=== PATIENT | female | born 1980 | race Caucasian/White ===

== ENCOUNTER 2016-11-07 17:07 | Emergency (ER) | payer OTHER ==
[~2016-11-07] VITALS: Ht 157.5 cm; Wt 89.4 kg
[2016-11-07 17:11] VITALS: BP 115/87
--- NOTE | 2016-11-07 17:53 | NUR ---
PATIENT LEFT WITHOUT BEING SEEN BY DR. MOORE. NO FURTHER CARE PROVIDED FOR PATIENT.
== END 2016-11-07 17:53 | disposition left against medical advice (07) ==
LOC: MED 17:07
DX: M54.5 Low back pain (principal); Z53.21 Procedure and treatment not carried out due to patient leaving prior to being seen by health care provider

== ENCOUNTER 2017-03-09 17:40 | Emergency (ER) | payer OTHER ==
[~2017-03-09] VITALS: Ht 165.1 cm; Wt 92.8 kg
[2017-03-09 18:21] VITALS: BP 123/75
--- NOTE | 2017-03-09 19:05 | NUR ---
PT TAKEN TO BED 4
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
--- NOTE | 2017-03-09 19:28 | NUR ---
Pt report given to JOSE CARLOS DOMINGUEZ. Transfer of care at this time.
--- NOTE | 2017-03-09 19:28 | NUR ---
Pt report given to JOSE CARLOS DOMINGUEZ. Transfer of care at this time.
--- NOTE | 2017-03-09 19:40 | NUR ---
PT TAKEN TO XRAY
--- NOTE | 2017-03-09 20:17 | NUR ---
BACK FROM XRAY.
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
[2017-03-09 21:19] VITALS: BP 114/64
--- NOTE | 2017-03-09 21:19 | NUR ---
Patient discharged with v/s stable. Written and verbal after care instructions given and explained. Patient alert, oriented and verbalized understanding of instructions. Ambulatory with steady gait. All questions addressed prior to discharge. ID band removed. Patient advised to follow up with PMD OR RETURN TO ER IF CONDITION WORSENS. Rx of MOTRIN given. Patient educated on indication of medication including possible reaction and side effects. Opportunity to ask questions provided and answered.
== END 2017-03-09 21:19 | disposition home or self-care (01) ==
LOC: MED 17:40
DX: M54.5 Low back pain (principal); I10 Essential (primary) hypertension; V89.2XXA Person injured in unspecified motor-vehicle accident, traffic, initial encounter; Y93.89 Activity, other specified; Y92.89 Other specified places as the place of occurrence of the external cause; Y99.8 Other external cause status
CPT/HCPCS: 72110; 81025; 99284